=== PATIENT | male | born 1990 | race Caucasian/White ===

== ENCOUNTER → 2021-08-11 | Day surgery (SDC) | payer OTHER ==
[~2021-08-11] MED LIST: BUSPIRONE HCL30 MG PO; DULOXETINE HCL60 MG PO; ESOMEPRAZOLE MA40 MG PO; FLONASE 0.05% N16 GM; MONTELUKAST SOD10 MG PO; ONDANSETRON HCL8 MG PO; VITAMIN D21250 MCG PO
== END | disposition home or self-care (01) ==
LOC: OR 08:12
DX: Z12.11 Encounter for screening for malignant neoplasm of colon (principal); Z86.010 Personal history of colon polyps; R10.32 Left lower quadrant pain; K64.8 Other hemorrhoids; K64.4 Residual hemorrhoidal skin tags; F17.290 Nicotine dependence, other tobacco product, uncomplicated; R10.9 Unspecified abdominal pain; Z20.822 Contact with and (suspected) exposure to COVID-19; Z98.84 Bariatric surgery status
CPT/HCPCS: J2250; J2704; J7040